=== PATIENT | male | born 1985 | race Caucasian/White ===

== ENCOUNTER 2020-06-19 12:52 | Emergency (ER) | payer OTHER ==
[~2020-06-19] VITALS: Ht 180.3 cm; Wt 82.0 kg
[2020-06-19 13:10] VITALS: BP 142/74
[2020-06-19] MEDS ORDERED: IOHEXOL 300 MG/ML 75 ML VIAL. IV ONE (13:45)
--- NOTE | 2020-06-19 13:47 | PHYS DOC ---
Past History Past Medical History: No Pertinent History Alcohol Use: Occasionally General Adult EDM: Chief Complaint: ABDOMINAL PAIN HPI: HPI: Patient is a 34-year-old male sent from [facility] for evaluation of right lower quadrant pain. They want to rule out appendicitis and I will do CT there. Patient states that he has been having 4 days of right lower quadrant pain. Says it started after he was constipated and straining then trying to do exercises to help move his bowels. He had used an enema and was having diarrhea afterwards. Denies any testicular pain, urinary complaints, vomiting. Pain does not change with food. Is changes some certain positions. Patient states that overall the pain is getting better now. Review of Systems: Review of Systems: All other systems within normal limits except for as noted in the HPI Current Medications: Current Meds: Current Medications Medications (Trade) Dose Ordered Sig/Oliver Start Time Stop Time Status Last Admin Dose Admin Iohexol (Omnipaque 300 Mg/ml) 75 ml 1X ONCE 06/19/20 13:45 06/19/20 13:46 Allergies: Allergies: Allergies Coded Allergies Type Severity Reaction Last Updated Verified aspirin Allergy Mild 06/19/20 Yes Physical Exam: PE: Constitutional: Well developed, well nourished, no acute distress, non-toxic appearance. [] HENT: Normocephalic, atraumatic, bilateral external ears normal, nose normal. [] Eyes: PERRLA, conjunctiva normal, no discharge. [] Neck: No rigidity, supple, no stridor. [] Cardiovascular: Regular rate and rhythm, brisk cap refill [] Lungs & Thorax: Non labored symmetric respirations, no tachypnea or respiratory distress [] Abdomen: Soft, nondistended, tenderness and abdominal wall mass in right lower quadrant. Remainder of exam unremarkable. Skin: Warm, dry, no erythema, no rash. [] Back: Unremarkable Extremities: No deformities, range of motion grossly intact, no lower extremity edema [] Neurologic: Alert and oriented X 3, no focal deficits noted. [] Psychologic: Affect normal, judgement normal, mood normal. [] Current Patient Data: Vital Signs: Vital Signs Date Time Temp Pulse Resp B/P (MAP) Pulse Ox O2 Delivery O2 Flow Rate FiO2 06/19/20 13:10 98.6 63 18 142/74 (96) 97 Room Air EKG: EKG: [] Radiology/Procedures: Radiology/Procedures: EXAM: Abdomen and pelvis CT with intravenous contrast. HISTORY: Right lower quadrant pain. TECHNIQUE: Computed tomographic images of the abdomen and pelvis were obtained following the administration of intravenous contrast. Multiplanar reformatting was performed. *One or more of the following individualized dose reduction techniques were utilized for this examination: 1. Automated exposure control. 2. Adjustment of the mA and/or kV according to patient size. 3. Use of iterative reconstruction technique. COMPARISON: None. FINDINGS: Evaluation of the lower thorax is unremarkable. No hepatic lesion is seen. The inferior vena cava is dilated. This is a nonspecific finding. Evaluation for associated thrombus is limited due to the phase of contrast administration. The pancreas, spleen, stomach and adrenal glands are unremarkable. The kidneys are unremarkable. There is a dilated appendix and there is periappendiceal stranding likely due to acute appendicitis. There is no abscess or perforation. The bladder is unremarkable. The aorta is normal in caliber. There is no lymphadenopathy. There is no suspicious osseous lesion. IMPRESSION: Acute appendicitis. There is no evidence of abscess or perforation. [] Heart Score: C/O Chest Pain: N/A Risk Factors: Risk Factors: DM, Current or recent (<one month) smoker, HTN, HLP, family history of CAD, obesity. Risk Scores: Score 0 - 3: 2.5% MACE over next 6 weeks - Discharge Home Score 4 - 6: 20.3% MACE over next 6 weeks - Admit for Clinical Observation Score 7 - 10: 72.7% MACE over next 6 weeks - Early Invasive Strategies Course & Med Decision Making: Course & Med Decision Making Pertinent Labs and Imaging studies reviewed. (See chart for details) Patient accepted for appendectomy today by Dr. Luong, admitted to the hospitalist Dr. Garcia. Patient made n.p.o. and started on antibiotics and IV fluids. Will transfer to [place] for further care [] Jerod Disclaimer: Jerod Disclaimer: This electronic medical record was generated, in whole or in part, using a voice recognition dictation system. Departure Departure: Impression: Primary Impression: Appendicitis Disposition: 02 DC/TRF OTHER SHORT TERM HOS Condition: GUARDED Referrals: PCP,UNKNOWN (PCP) JAYDEN MICHAELS MD Jun 19, 2020 13:47
[2020-06-19 14:09] LABS: CALCIUM 9.1 mg/dL (8.5-10.1); GFR 85.5; POTASSIUM 4.2 mmol/L (3.5-5.1)
[2020-06-19 14:16] LABS: ALBUMIN 3.8 g/dL (3.4-5.0); ALBUMIN/GLOBULIN RATIO 1.1 (1.0-1.7); TOTAL BILIRUBIN 0.4 mg/dL (0.2-1.0); TOTAL PROTEIN 7.2 g/dL (6.4-8.2)
[2020-06-19 14:19] LABS: BASO % 0 % (0-3); EOS # 0.1 x10^3/uL (0.0-0.7); EOS % 2 % (0-3); HEMATOCRIT 45.4 % (39.0-53.0); HEMOGLOBIN 14.7 g/dL (13.0-17.5); LYMPH # 1.3 x10^3/uL (1.0-4.8); LYMPH % 20 % (24-48); MEAN CORPUSCULAR HEMOGLOBIN 25 pg (25-35); MEAN CORPUSCULAR HGB CONC 32 g/dL (31-37); MEAN CORPUSCULAR VOLUME 76 fL (79-100); MONO # 0.4 x10^3/uL (0.0-1.1); MONO % 6 % (0-9); NEUT # 4.8 x10^3uL (1.8-7.7); NEUT % 72 % (31-73); PLATELET COUNT 168 x10^3/uL (140-400); RED CELL DISTRIBUTION WIDTH 14.2 % (11.5-14.5); WHITE BLOOD COUNT 6.6 x10^3/uL (4.0-11.0)
--- NOTE | 2020-06-19 14:31 | RAD ---
EXAM: Abdomen and pelvis CT with intravenous contrast. HISTORY: Right lower quadrant pain. TECHNIQUE: Computed tomographic images of the abdomen and pelvis were obtained following the administ ration of intravenous contrast. Multiplanar reformatting was performed. *One or more of the following individualized dose reduction techniques were utilized for this examina tion: 1. Automated exposure control. 2. Adjustment of the mA and/or kV according to patient size. 3. Use of iterative reconstruction technique. COMPARISON: None. FINDINGS: Evaluation of the lower thorax is unremarkable. No hepatic lesion is seen. The inferior estelle a cava is dilated. This is a nonspecific finding. Evaluation for associated thrombus is limited due t o the phase of contrast administration. The pancreas, spleen, stomach and adrenal glands are unremark able. The kidneys are unremarkable. There is a dilated appendix and there is periappendiceal stranding likely due to acute appendicitis. There is no abscess or perforation. The bladder is unremarkable. The aorta is normal in caliber. Ther e is no lymphadenopathy. There is no suspicious osseous lesion. IMPRESSION: Acute appendicitis. There is no evidence of abscess or perforation. Electronically signed by: Reshma Barrett MD (06/19/2020 2:28 PM) [id number]
[2020-06-19] MEDS ORDERED: PIPERACILLIN/TAZOBACTAM 3.375 GM in IV NORMAL SALINE 50ML 50 ML IV ONE (15:00)
[2020-06-19] MEDS ORDERED: IV NORMAL SALINE 1,000ML 1,000 ML IV ONE (15:00)
[2020-06-19] MEDS ORDERED: PIPERACILLIN/TAZOBACTAM 3.375 GM VIAL IV ONE (15:43)
[2020-06-19] MEDS ORDERED: IV NORMAL SALINE 50ML 50 ML ONE (15:43)
== END 2020-06-19 16:36 | disposition short-term general hospital (02) ==
LOC: ER 12:52
DX: K37 Unspecified appendicitis (principal); Z20.822 Contact with and (suspected) exposure to COVID-19; Z88.6 Allergy status to analgesic agent
CPT/HCPCS: 36415; 74177; 80053; 83605; 85025; 87426; 96365; 99285; C9803; J2543; Q9967; U0003